=== PATIENT | male | born 1995 ===

== ENCOUNTER 2017-02-08 20:44 | Emergency (ER) | payer BC ==
[~2017-02-08] VITALS: Ht 167.6 cm; Wt 63.1 kg
[2017-02-08 20:49] VITALS: BP 156/98; TEMP 36.7; Ht 167.6 cm; Wt 63.1 kg
[2017-02-08] MEDS ORDERED: ONDANSETRON INJ 2 MG/ML 2 ML VIAL IV STA (20:56)
[2017-02-08] MEDS ORDERED: MoRPHine SULFATE 4 MG/ML 1 ML CARP\\VIAL IV STA ×2 (20:56→21:30)
[2017-02-08 21:09] VITALS: O2SAT 98
[2017-02-08 22:00] VITALS: PULSE 70; O2SAT 96
--- NOTE | 2017-02-08 22:06 | DIAGNOSTIC IMAGING REPORT ---
LEFT SHOULDER MIN 2 VIEWS ROUTINE CLINICAL HISTORY: Dislocation. COMPARISON: None FINDINGS: There is an anterior left shoulder dislocation. There may be an associated Hill-Sachs deformity with impaction injury of the superolateral aspect of the left humeral head. No additional fractures are identified. IMPRESSION: Anterior left shoulder dislocation with probable associated Hill-Sachs. Electronically signed by: Nick Kitchen M.D. 02/08/2017 10:04 PM Dictated Date/Time: 02/08/2017 10:03 PM
[2017-02-08] MEDS ORDERED: HYDR-5688 PO (22:12)
--- NOTE | 2017-02-08 22:13 | EMERGENCY ROOM VISIT NOTE ---
History First contact with patient: 20:53 Chief Complaint: ARM PAIN Stated Complaint: DISLOCATED LEFT ARM History of Present Illness The patient is a 21 year old male who presents to the Emergency Department by private vehicle for evaluation of his LEFT shoulder injury. The patient reports that he slipped on ice causing him to fall. He is uncertain if he caught himself. He complains of pain and deformity to the LEFT shoulder. He denies any history of fracture or injury to the affected arm. He rates his current discomfort as a 5/10. He reports some tingling into his fingers. He reports pain with range of motion. He denies any associated neck pain, chest pain, rib pain, elbow pain, or wrist pain. Review of Systems A complete 10-point Review of Systems was discussed with the patient, with pertinent positives and negatives listed in the History of Present Illness. All remaining Review of Systems questions can be considered negative unless otherwise specified. Social History Smoking Status: Never Smoker Smokeless Tobacco Use: No Drug Use: none Marital Status: single Housing Status: lives with roommate Occupation Status: [employer] student Current/Historical Medications Scheduled PRN Hydrocodone/Acetaminophen 5MG/325MG ([place] 5MG/325MG), 1-2 TABLET PO Q4H PRN for Pain Allergies Coded Allergies: No Known Allergies (Unverified , 02/08/17) Physical Exam Vital Signs Date Time Temp Pulse Resp B/P Pulse Ox O2 Delivery O2 Flow Rate FiO2 02/08/17 22:00 70 16 96 02/08/17 21:09 98 Room Air 02/08/17 20:49 36.7 100 18 156/98 100 Room Air Pain Rating (0-10): 5 Physical Exam VITAL SIGNS - Vital signs and nursing notes were reviewed. GENERAL - 21-year-old male appearing his stated age and in noticeable discomfort throughout the exam. NECK - FROM of the cervical spine. No spinous process or paraspinal muscle tenderness to palpation. No nuchal rigidity. LUNGS - Chest wall symmetric without accessory muscle use, intercostals retractions, or central cyanosis. Normal vesicular breath sounds CTA B/L. No wheezes, rales, or rhonchi appreciated. CARDIAC - RRR with S1/S2. No murmur, rubs, or gallops appreciated. MUSCULOSKELETAL - Active ROM of the LEFT shoulder was limited in all directions. 0' of abduction. No step-off deformities of the clavicle were palpable. Step-off deformity over the deltoid consistent with dislocation. NEUROLOGIC - SENSORY: Spinothalamic tract was found to be intact with ability to discriminate sharp versus dull sensation at the level of the LEFT side of the neck down to the fingertips. No sensory deficits of the dorsal column were appreciated utilizing light touch for evaluation. VASCULAR - Capillary refill was brisk. +3/5 radial pulse palpated. Medical Decision & Procedures ER Provider Diagnostic Interpretation: Radiological imaging and reports were reviewed by myself. Radiologist's Interpretation as follows: LEFT SHOULDER MIN 2 VIEWS ROUTINE CLINICAL HISTORY: Dislocation. COMPARISON: None FINDINGS: There is an anterior left shoulder dislocation. There may be an associated Hill-Sachs deformity with impaction injury of the superolateral aspect of the left humeral head. No additional fractures are identified. IMPRESSION: Anterior left shoulder dislocation with probable associated Hill-Sachs. Medications Administered Medications (Trade) Dose Ordered Sig/Chuy Route Start Time Stop Time Status Last Admin Dose Admin Morphine Sulfate (MoRPHine SULFATE INJ) 4 mg NOW STAT IV 02/08/17 20:56 02/08/17 20:57 DC 02/08/17 21:18 4 MG Ondansetron HCl (Zofran Inj) 4 mg NOW STAT IV 02/08/17 20:56 02/08/17 20:57 DC 02/08/17 21:17 4 MG Morphine Sulfate (MoRPHine SULFATE INJ) 4 mg NOW STAT IV 02/08/17 21:30 02/08/17 21:31 DC 02/08/17 21:30 4 MG Procedure Verbal consent was obtained prior to performing the procedure. The patient was placed in the prone position with his LEFT arm dangling off the edge of the bed. His elbow was passively flexed to 90. The elbow was slowly manipulated towards the ground with mild scapular manipulation. The shoulder easily reduced without issue. The patient tolerated procedure well. No complications were met. ED Course Patient was seen and evaluated by myself. IV lock was established. The patient was treated with formal grams morphine and 4 mg Zofran intravenously for pain. X-ray of the affected shoulder was obtained. Imaging results as above. Patient was treated with an additional 4 mg of morphine for pain. Reduction was performed successfully without complication. The patient was placed in an arm sling for comfort. He remained neurovascular intact pre-and post-splint to. The patient was educated on worrisome symptoms for return visit to the emergency department. Patient discharged home in good condition. Medical Decision Given the patient's presentation and exam findings, I did elect to perform the above-mentioned workup. The patient presents today with an obvious shoulder dislocation. He has not sustained a previous shoulder dislocation. Because of this, and imaging studies were obtained to rule out underlying fracture. Patient's pain was adequately controlled the emergency setting. Close reduction was performed without issue. Patient was provided arm sling for comfort. He will follow-up with orthopedic surgery or return for any changing/ worsening symptoms. Patient discharged home in good condition. In the evaluation and treatment of this patient, the following differential diagnoses were considered: Shoulder Contusion, Shoulder Fracture, Shoulder Dislocation, Thoracic Outlet Syndrome, Adhesive Capsulitis, Rotator Cuff Tear, Proximal Clavicle Head Fracture, Apical Pneumonia, Pneumothorax, Hemothorax, or TB. Impression Primary Impression: Shoulder dislocation Departure Information Dispostion Home / Self-Care Condition GOOD Prescriptions Hydrocodone/Acetaminophen 5MG/325MG ([place] 5MG/325MG) Tab 1-2 TABLET PO Q4H Y for Pain, #10 TAB For Initial Treatment Prov: Khanh Mcgrath PA-C 02/08/17 Referrals [facility] [address] (PCP) Sandro Victoria MD Patient Instructions ED Dislocation Shoulder Redu, [facility] Additional Instructions You have been treated in the Emergency Department for a LEFT Shoulder Dislocation - Reduced. You have received pain medicine in the emergency department which impairs your ability to operate a vehicle. It is illegal for you to drive after receiving these medicines. You have been prescribed [place] to be used for pain control. This is a narcotic medication. You cannot drive or consume alcohol while on this medicine. This medicine should only be used for pain that cannot be controlled with over-the- counter pain medicines. For pain control, you can use the following ypxd-[id number]-sduxibk medicines (if >12 yo): - Regular strength (325mg/tab) Tylenol (acetaminophen) 2 tabs every 4-6 hours as needed. Do not exceed 12 tablets in a 24 hour period. Avoid taking more than 4 grams (4000 mg) of Tylenol per day. This includes any other sources of acetaminophen you may take on a regular basis. - Regular strength (200 mg/tab) Advil (ibuprofen) 1-2 tabs every 4-6 hours as needed. Do not exceed a dose of 3200 mg per day. If this is a recent injury (<24 hrs), ice can be applied to the area of pain for the first 3 days to help decrease pain and inflammation. You have been provided the number for an Orthopaedic Surgeon. You should call this number as soon as possible to establish a follow-up visit from today's Emergency Department visit. Keep the shoulder brace in place until evaluated by Orthopedics. Return to the Emergency Department if your current symptoms worsen despite treatment course outlined above, or if you develop any of the following symptoms : intractable pain despite aforementioned treatment course or new onset of numbness or tingling of the arm. Problem Qualifiers Primary Impression: Shoulder dislocation Encounter type: initial encounter Laterality: left Qualified Codes: S43.005A - Unspecified dislocation of left shoulder joint, initial encounter
[2017-02-08] MEDS ORDERED: NORCO 5/325MG HOME PACK PO ONE (22:15)
== END 2017-02-08 22:29 | disposition home or self-care (01) ==
LOC: C.EDB 20:47 → C.EDD 22:29
DX: S43.005A Unspecified dislocation of left shoulder joint, initial encounter (principal); W00.0XXA Fall on same level due to ice and snow, initial encounter

== ENCOUNTER → 2017-02-28 | Outpatient (CLI) | payer BC ==
[~2017-02-28] MED LIST: HYDR-5688 PO
== END | disposition home or self-care (01) ==
LOC: C.RDSM 12:59
PROVIDERS: ATTEND Physical Medicine & Rehabilitation Sports Medicine
DX: S43.005A Unspecified dislocation of left shoulder joint, initial encounter (principal); X58.XXXA Exposure to other specified factors, initial encounter

== ENCOUNTER → 2017-03-13 | Outpatient (CLI) | payer BC ==
[~2017-03-13] MED LIST changes: +GADAVIST IV PRN
--- NOTE | 2017-03-13 14:02 | DIAGNOSTIC IMAGING REPORT ---
FLUOROSCOPIC GUIDED LEFT SHOULDER ARTHROGRAM FLUOROSCOPY TIME: 26 seconds HISTORY: Shoulder pain. L SHOULDER DISLOCATION PROCEDURE: After obtaining written informed consent, the patient was placed supine on the fluoroscopy table. A suitable site for needle insertion was marked using fluoroscopic guidance. The left shoulder was prepped and draped in the usual sterile fashion. 1% lidocaine was used for skin, subcutaneous and deep soft tissue anesthesia. Under intermittent fluoroscopic guidance, a 22 gauge 2.5 inch spinal needle was inserted into the left glenohumeral joint. A total of 14 cc of one-to-one mixture of dilute Magnevist (0.1 cc in 10 cc saline) and Optiray 300 were injected. The needle was then removed. There were no apparent complications. The patient was transported to for further imaging. IMPRESSION: Fluoroscopic-guided left shoulder arthrogram without immediate complication. Total injected volume was 14 cc. MR portion of the examination will be dictated separately. Electronically signed by: Reji Nam M.D. 03/13/2017 2:00 PM Dictated Date/Time: 03/13/2017 2:00 PM
--- NOTE | 2017-03-13 14:31 | DIAGNOSTIC IMAGING REPORT ---
POST ARTHROGRAM MRI LEFT SHOULDER CLINICAL HISTORY: L SHOULDER DISLOCATION COMPARISON STUDY: Conventional radiographic study dated 02/28/2017 FINDINGS: Imaging was performed the paracoronal sagittal and axial planes. The bicipital tendon appears normal. There is no evidence of rotator cuff tear. There is a subchondral cyst within the humeral head. There is a Hill-Sachs deformity involving the humeral head with subchondral edema. There is a partial tear of the inferior glenohumeral ligament. No labral tears are visualized. IMPRESSION: 1. Bone marrow edema involving the humeral head consistent with a Hill-Sachs deformity 2. No evidence of rotator cuff tear 3. No evidence of labral tear 4. Partial tear involving the inferior glenohumeral ligament Electronically signed by: Silver Jain M.D. 03/13/2017 2:29 PM Dictated Date/Time: 03/13/2017 2:21 PM
== END | disposition home or self-care (01) ==
LOC: C.MRIBC 12:50
PROVIDERS: ATTEND Physical Medicine & Rehabilitation Sports Medicine
DX: S43.005A Unspecified dislocation of left shoulder joint, initial encounter (principal); X58.XXXA Exposure to other specified factors, initial encounter